=== PATIENT | male | born 2000 | race Caucasian/White ===

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

== ENCOUNTER 2018-04-27 00:35 | Emergency (ER) | payer OTHER ==
[2018-04-27 01:14] VITALS: RESP 18
[2018-04-27] MEDS ORDERED: KETOROLAC 30 MG/ML 1 ML VIAL IM STA (02:24)
[2018-04-27] MEDS ORDERED: PENICILLIN VK 500MG STARTER 4 TAB BTL PO STA (03:24)
--- NOTE | 2018-04-27 03:26 | ED ---
General Adult HPI - General Chief complaint: Dental/Oral Stated complaint: dental pain Time Seen by Provider: 04/27/18 01:46 Source: patient, RN notes reviewed Mode of arrival: ambulatory Limitations: no limitations - History of Present Illness Initial comments: 18-year-old male presents to the emergency determine for a chief complaint of dental pain 3 days. Patient states he started to notice this pain 3 days ago and went to [facility] and was given Motrin. Patient states the pain has worsened and he now has pain opening his mouth. Patient states he also has a sore throat and it is painful to swallow. Patient states he has had a fever at home of 101 over the past few days. He denies any recent dental work.patient denies any pain in the neck. Patient denies any neck stiffness. Patient has no other complaints at this time including shortness of breath, chest pain, abdominal pain, nausea or vomiting, headache, or visual changes. - Related Data Home Medications Medication Instructions Recorded Confirmed Ibuprofen [Motrin] 400 mg PO Q6HR PRN 04/22/17 04/27/18 Previous Rx's Medication Instructions Recorded Penicillin V Potassium [Pen Vee K] 500 mg PO Q6H 10 Days tablet 04/27/18 Allergies Allergy/AdvReac Type Severity Reaction Status Date / Time No Known Allergies Allergy Verified 04/27/18 01:15 Review of Systems ROS Statement: Those systems with pertinent positive or pertinent negative responses have been documented in the HPI. ROS Other: All systems not noted in ROS Statement are negative. Past Medical History Past Medical History: No Reported History Additional Past Medical History / Comment(s): heart murmur when young History of Any Multi-Drug Resistant Organisms: None Reported Past Surgical History: No Surgical Hx Reported Past Psychological History: ADD/ADHD, Anxiety, Bipolar, Depression Smoking Status: Current every day smoker Past Alcohol Use History: None Reported Past Drug Use History: Marijuana General Exam Limitations: no limitations General appearance: alert, in no apparent distress Head exam: Present: atraumatic, normocephalic, normal inspection Eye exam: Present: normal appearance, PERRL, EOMI. Absent: scleral icterus, conjunctival injection, periorbital swelling ENT exam: Present: TM's normal bilaterally, normal external ear exam, other (No sublingual tenderness. No swelling noted under the mandible.). Absent: normal oropharynx (Teeth 32 and 17 are tender to palpation with tongue blade. Gums do appear inflamed around these teeth. No evidence of abscess. Bilateral tonsillar exudates noted. Uvula midline. No evidence of peritonsillar abscess. ) Neck exam: Present: normal inspection, full ROM. Absent: tenderness, meningismus, lymphadenopathy Respiratory exam: Present: normal lung sounds bilaterally. Absent: respiratory distress, wheezes, rales, rhonchi, stridor Cardiovascular Exam: Present: regular rate, normal rhythm, normal heart sounds. Absent: systolic murmur, diastolic murmur, rubs, gallop, clicks GI/Abdominal exam: Present: soft, normal bowel sounds. Absent: distended, tenderness, guarding, rebound, rigid Neurological exam: Present: alert, oriented X3, CN II-XII intact Psychiatric exam: Present: normal affect, normal mood Course Vital Signs 04/27/18 04/27/18 01:10 03:49 Temperature 99.3 F 99.0 F Pulse Rate 98 96 Respiratory 18 18 Rate Blood Pressure 139/69 136/68 O2 Sat by Pulse 98 99 Oximetry Medical Decision Making - Medical Decision Making 18-year-old male presents for a chief complaint of dental pain and sore throat 3 days. Patient states it is painful to open his mouth. Patient was seen at [facility] and was given Motrin but no antibiotics. Patient has had a fever for the past few days as well. On exam there is tenderness to palpation of teeth 32 and 17 with gingival irritation. No evidence of abscess with palpation of gumline. Tonsillar exudates noted bilaterally. Negative strep and mono. Influenza was negative. Patient will be treated with penicillin for dental infection. He was given a starter pack here and also a prescription. He will follow up with dentist on Saturday. He will return immediately to the emergency department if he has any worsening symptoms. Dr Abdullahi also saw the patient. - Lab Data Lab Results 04/27/18 04/27/18 04/27/18 Range/Units 02:47 02:47 02:47 Heterophile Antibody Negative (Negative) Influenza Type A RNA Not Detected (Not Detectd) Influenza Type B (PCR) Not Detected (Not Detectd) Group A Strep Rapid Negative (Negative) Disposition Clinical Impression: Dental infection, Pharyngitis Disposition: HOME SELF-CARE Condition: Good Instructions: Toothache (ED) Additional Instructions: Please take antibiotic as directed. Please take Motrin and Tylenol for pain. Return immediately to the emergency department if you have any worsening symptoms. Follow-up with dentist as soon as possible. Follow up with primary care in 1-2 days as well. [facility] dental clinic: Address: [address] [place] [address] Prescriptions: Penicillin V Potassium [Pen Vee K] 500 mg PO Q6H 10 Days tablet Is patient prescribed a controlled substance at d/c from ED?: No Referrals: Faustino Martinez MD [Primary Care Provider] - 1-2 days Time of Disposition: 03:25
[2018-04-27 03:50] VITALS: BP 136/68; PULSE 96; TEMP 99
== END 2018-04-27 03:50 | disposition home or self-care (01) ==
LOC: EC 00:35
DX: K04.7 Periapical abscess without sinus (principal); J02.9 Acute pharyngitis, unspecified; F17.200 Nicotine dependence, unspecified, uncomplicated
CPT/HCPCS: 36415; 86308; 87081; 87430; 87502; 99283; 96372; J1885